=== PATIENT | male | born 2000 | race African-American/Black ===

== ENCOUNTER 2022-07-22 16:21 | Emergency (ER) | payer SELFPAY ==
[~2022-07-22] VITALS: Ht 157.5 cm; Wt 63.0 kg
[2022-07-22] MEDS ORDERED: IBUPROFEN 400MG TABLET PO ONE (23:45)
[2022-07-23 00:07] VITALS: BP 142/88
[2022-07-23] MEDS ORDERED: IBUP-2028 MT (02:11)
== END 2022-07-23 02:28 | disposition home or self-care (01) ==
LOC: ER 16:21
DX: S50.311A Abrasion of right elbow, initial encounter (principal); M79.652 Pain in left thigh; M25.551 Pain in right hip; M25.552 Pain in left hip; R03.0 Elevated blood-pressure reading, without diagnosis of hypertension; G89.11 Acute pain due to trauma; G80.9 Cerebral palsy, unspecified; Z74.09 Other reduced mobility; V03.90XA Pedestrian on foot injured in collision with car, pick-up truck or van, unspecified whether traffic or nontraffic accident, initial encounter; Y93.01 Activity, walking, marching and hiking; Y92.414 Local residential or business street as the place of occurrence of the external cause; Z99.89 Dependence on other enabling machines and devices; Z98.890 Other specified postprocedural states
CPT/HCPCS: 73080; 73521; 73552; 99284